=== PATIENT | male | born 1995 | race African-American/Black ===

== ENCOUNTER 2020-07-01 23:41 | Emergency (ER) | payer SELFPAY ==
[~2020-07-01] VITALS: Ht 190.5 cm; Wt 74.0 kg
[2020-07-02 00:39] LABS: BARBITURATES NEG (NEG); BENZODIAZEPINES NEG (NEG); CANNABINOIDS POS (NEG); COCAINE NEG (NEG); METHADONE NEG (NEG); OPIATES NEG (NEG); PHENCYCLIDINE NEG (NEG)
[2020-07-02 00:41] LABS: BILIRUBIN,URINE NEG (NEG); CLARITY,URINE HAZY; COLOR,URINE YELLOW; GLUCOSE,URINE NEG (NEG); NITRITE,URINE NEG (NEG); UROBILINOGEN,URINE 0.2 mg/dL (0.2 mg/dL)
[2020-07-02 00:42] LABS: BACTERIA,URINE FEW /HPF (0-FEW); RBC,URINE 0 /HPF (0-2); WBC,URINE >40 /HPF (0-4)
[2020-07-02 00:43] LABS: AMPHETAMINE/METHAMPHETAMINE NEG (NEG)
[2020-07-02] MEDS ORDERED: metroNIDAZOLE 500 MG TABLET PO ONE (01:15)
[2020-07-02] MEDS ORDERED: AZITHROMYCIN 250 MG TABLET. PO ONE (01:15)
[2020-07-02] MEDS ORDERED: cefTRIAXone IM 1 GM VIAL IM ONE (01:15)
[2020-07-02] MEDS ORDERED: ONDANSETRON ODT 4 MG TAB.RAPDIS PO ONE (01:15)
[2020-07-02] MEDS ORDERED: DOXY-96 PO (01:21)
[2020-07-02] MEDS ORDERED: AZITHROMYCIN 250 MG TABLET. ONE (01:29)
[2020-07-02] MEDS ORDERED: ONDANSETRON ODT 4 MG TAB.RAPDIS ONE (01:29)
[2020-07-02] MEDS ORDERED: metroNIDAZOLE 500 MG TABLET ONE (01:29)
[2020-07-02] MEDS ORDERED: cefTRIAXone SODIUM 1 GM VIAL ONE (01:29)
[2020-07-02 02:05] VITALS: BP 132/78
--- NOTE | 2020-07-02 04:26 | PHYS DOC ---
Past History Past Medical History: No Pertinent History, STD, UTI Past Surgical History: Other Additional Past Surgical Histo: left knee for MRSA Smoking: Cigarettes Alcohol Use: Occasionally Drug Use: Marijuana General Adult EDM: Chief Complaint: PAIN ON URINATION HPI: HPI: "....It hurt like heck when I take a piss.. I thought maybe I gotten chlamydia and gonorrhea again.... So I went to the health department proxy 1 month ago... They said they did not see anything wrong and that may be of she is starting to get a urinary tract infection and drink lots of water... But I have continue to have a discharge.... And now it really hurts when I piss".. Patient is a 24 year old male who presents with discolored greenish penis discharge and dysuria. Symptoms have been present for approximately 1 month. Symptoms are similar to previous episode of chlamydia and gonorrhea. Patient has had 10 lifetime sexual partners. Patient denies any history of immune suppression. Denies other health issues. Denies any recent travel. No specific ill contacts. Last time he had sexual intercourse was approximately 1 month ago when he broke up with his girlfriend. Patient is a circumcised male. No adenopathy in groin. Does have a noticeable discharge that has soaked his underwear. Patient does smoke tobacco and marijuana. Patient has had history of MRSA. Review of Systems: Review of Systems: Constitutional: Denies fever or chills Eyes: Denies change in visual acuity HENT: Denies nasal congestion or sore throat Respiratory: Denies cough or shortness of breath Cardiovascular: Denies chest pain or edema GI: Denies abdominal pain, nausea, vomiting, bloody stools or diarrhea : Complains of penile discharge and dysuria Musculoskeletal: Denies back pain or joint pain Integument: Denies rash Neurologic: Denies headache, focal weakness or sensory changes Endocrine: Denies polyuria or polydipsia Lymphatic: Denies swollen glands Psychiatric: Denies depression or anxiety Family History: Family History: Noncontributory to presentation Current Medications: Current Meds: Current Medications Medications (Trade) Dose Ordered Sig/Tiffanie Start Time Stop Time Status Last Admin Dose Admin Azithromycin (Zithromax) 250 mg STK-MED ONCE 07/02/20 01:29 07/02/20 02:06 DC Ceftriaxone Sodium (Rocephin Im) 1 gm 1X ONCE 07/02/20 01:15 07/02/20 02:06 DC 07/02/20 01:39 1 GM Ceftriaxone Sodium (Rocephin) 1 gm STK-MED ONCE 07/02/20 01:29 07/02/20 01:29 DC Metronidazole (Flagyl) 500 mg STK-MED ONCE 07/02/20 01:29 07/02/20 02:06 DC Ondansetron HCl (Zofran Odt) 4 mg STK-MED ONCE 07/02/20 01:29 07/02/20 02:06 DC Allergies: Allergies: Allergies Coded Allergies Type Severity Reaction Last Updated Verified No Known Allergies Allergy Unknown 07/02/20 Yes Physical Exam: PE: Constitutional: Well developed, well nourished, no acute distress, non-toxic appearance. [] HENT: Normocephalic, atraumatic, bilateral external ears normal, oropharynx moist, no oral exudates, nose normal. [] Eyes: PERRLA, EOMI, conjunctiva normal, no discharge. [] Neck: Normal range of motion, no tenderness, supple, no stridor. [] Cardiovascular:Heart rate regular rhythm, no murmur [] Lungs & Thorax: Bilateral breath sounds are apex few scattered wheezes auscultation [] Abdomen: Bowel sounds normal, soft, no tenderness, no masses, no pulsatile masses. Genital exam as per HPI. Testicles are nontender. No adenopathy in groin. Skin: Warm, dry, no erythema, no rash. [] Back: No tenderness, no CVA tenderness. [] Extremities: No tenderness, no cyanosis, no clubbing, ROM intact, no edema. [] Neurologic: Alert and oriented X 3, normal motor function, normal sensory function, no focal deficits noted. [] Psychologic: Affect anxious, judgement normal, mood normal. [] Current Patient Data: Labs: Laboratory Tests Test 07/01/20 23:58 Urine Collection Type Unknown Urine Color Yellow Urine Clarity Hazy Urine pH 6.5 Urine Specific [place]well 1.010 Urine Protein Neg (NEG-TRACE) Urine Glucose (UA) Neg mg/dL (NEG) Urine Ketones (Stick) Neg mg/dL (NEG) Urine Blood Trace (NEG) Urine Nitrite Neg (NEG) Urine Bilirubin Neg (NEG) Urine Urobilinogen Dipstick 0.2 mg/dL (0.2 mg/dL) Urine Leukocyte Esterase Large (NEG) Urine RBC 0 /HPF (0-2) Urine WBC >40 /HPF (0-4) Urine Squamous Epithelial Cells None /LPF Urine Bacteria Few /HPF (0-FEW) Urine Opiates Screen Neg (NEG) Urine Methadone Screen Neg (NEG) Urine Barbiturates Neg (NEG) Urine Phencyclidine Screen Neg (NEG) Urine Amphetamine/Methamphetamine Neg (NEG) Urine Benzodiazepines Screen Neg (NEG) Urine Cocaine Screen Neg (NEG) Urine Cannabinoids Screen Pos (NEG) Urine Ethyl Alcohol Neg (NEG) Vital Signs: Vital Signs Date Time Temp Pulse Resp B/P (MAP) Pulse Ox O2 Delivery O2 Flow Rate FiO2 07/02/20 02:05 65 132/78 (96) 100 Room Air 07/01/20 23:41 98.4 16 EKG: EKG: [] Radiology/Procedures: Radiology/Procedures: [] Heart Score: Risk Factors: Risk Factors: DM, Current or recent (<one month) smoker, HTN, HLP, family history of CAD, obesity. Risk Scores: Score 0 - 3: 2.5% MACE over next 6 weeks - Discharge Home Score 4 - 6: 20.3% MACE over next 6 weeks - Admit for Clinical Observation Score 7 - 10: 72.7% MACE over next 6 weeks - Early Invasive Strategies Course & Med Decision Making: Course & Med Decision Making Pertinent Labs and Imaging studies reviewed. (See chart for details) Patient follow-up pending cultures. Patient appears to have significant urethritis and penile discharge. History of unprotected sex suspect dysuria is caused by an STD. Patient received 1 g of Rocephin IM, 2 g of Flagyl by mouth Zofran 8 mg, and 1000 mg of Zithromax by mouth. Patient to complete a course of doxycycline 100 mg twice a day for the next 14 days. Patient inform his sexual partners of his STD. Patient practice safe sex. Patient push fluids. Patient follow-up primary care. Patient return if any concerns. Patient consider testing for HIV. Impression: 1. Dysuria 2. Urinary tract infection/right neuritis 3. Suspect STD [] Dragon Disclaimer: Dragon Disclaimer: This electronic medical record was generated, in whole or in part, using a voice recognition dictation system. Departure Departure: Impression: Primary Impression: UTI (urinary tract infection) Additional Impression: Urethritis Disposition: 01 DC HOME SELF CARE/HOMELESS Condition: GUARDED Patient Instructions: Sexually Transmitted Disease, [id number] Additional Instructions: Notify your sexual partners of a possible STD. Take doxycycline 100 mg twice a day. Follow-up cultures. Follow-up primary care. Return if any concerns. Practice safe sex. Scripts Doxycycline Hyclate (DOXYCYCLINE HYCLATE) 100 Mg Tablet. 100 MG PO BID for STD for 14 Days, #28 TAB Prov: FRANCOIS BELTRÁN MD 07/02/20 Pretty Disclaimer This chart was dictated in whole or in part using Voice Recognition software in a busy, high-work load, and often noisy Emergency Department environment. It may contain unintended and wholly unrecognized errors or omissions. Dragon Disclaimer This chart was dictated in whole or in part using Voice Recognition software in a busy, high-work load, and often noisy Emergency Department environment. It may contain unintended and wholly unrecognized errors or omissions. FRANCOIS BELTRÁN MD Jul 02, 2020 04:26
== END 2020-07-02 01:55 | disposition home or self-care (01) ==
LOC: ER 23:41
DX: N39.0 Urinary tract infection, site not specified (principal); N34.2 Other urethritis; F17.210 Nicotine dependence, cigarettes, uncomplicated; Z87.440 Personal history of urinary (tract) infections
CPT/HCPCS: 36415; 80307; 81001; 87086; 87491; 87591; 96372; 99284; J0696; Q0162